=== PATIENT | female | born 1940 | race Caucasian/White ===

== ENCOUNTER 2025-03-09 16:38 | Inpatient (IN) ==
--- NOTE | 2025-03-09 17:18 | DR.HTN ---
HPI Time Seen Time Seen by Provider: 03/09/25 17:13 Complaints Chief Complaint Doctors Comments: 84 yo F, hx of HTN, c/o stroke like symptoms for the past 2-3 wk. States 3 wk ago began having impaired short-term memory and intermitt blurred vision. 2 wk ago began having intermitt episodes of expressive aphasia and slurred speech. Pt admits to mild dyspnea. Denies other complaints. No trouble with speech today. BP 212/79 at home today. PMH PMH Past Medical History: Asthma, Depression, Dyslipidemia, Gout, Hypertension, Hypothyroidism and Kidney Stones Past Surgical History: Yes Surgical History: Abdominal Surgery, , Cholecystectomy, [employer] Surgery and Hysterectomy Family History Family Medical History: VT, Coronary Artery Disease, Heart Failure and Hypertension Social History Do you use any recreational Drugs:: No ROS Review of Systems Neurological: Headache and Other (blurred vision, slurred speech, memory problems, confusion) All Other Systems: Reviewed and Negative PE Vital Signs Vitals: Vital Signs Temperature 98.5 F Pulse Rate 76 Pulse Rate 76 Pulse Rate 77 Pulse Rate 74 Pulse Rate 75 Pulse Rate 76 Pulse Rate 74 Pulse Rate 75 Pulse Rate 80 Pulse Rate 69 Pulse Rate 70 Pulse Rate 71 Pulse Rate 73 Pulse Rate 74 Pulse Rate 74 Pulse Rate 70 Pulse Rate 69 Pulse Rate 72 Pulse Rate 75 Pulse Rate 69 Pulse Rate 67 Pulse Rate 66 Pulse Rate 64 Pulse Rate 64 Respiratory Rate 28 Respiratory Rate 28 Respiratory Rate 23 Respiratory Rate 15 Respiratory Rate 23 Respiratory Rate 15 Respiratory Rate 17 Respiratory Rate 18 Respiratory Rate 19 Respiratory Rate 22 Respiratory Rate 23 Respiratory Rate 19 Respiratory Rate 19 Respiratory Rate 18 Respiratory Rate 17 Respiratory Rate 16 Respiratory Rate 22 Respiratory Rate 17 Respiratory Rate 25 Respiratory Rate 20 Respiratory Rate 18 Blood Pressure 195/91 Blood Pressure 192/81 Blood Pressure 187/78 Blood Pressure 187/79 Blood Pressure 185/79 Blood Pressure 209/86 Blood Pressure 184/77 Blood Pressure 183/77 Blood Pressure 182/76 Blood Pressure 206/81 Blood Pressure 179/78 Blood Pressure 206/79 Blood Pressure 200/85 Blood Pressure 215/95 Blood Pressure 221/88 Blood Pressure 209/87 O2 Sat by Pulse Oximetry 97 O2 Sat by Pulse Oximetry 98 O2 Sat by Pulse Oximetry 97 O2 Sat by Pulse Oximetry 97 O2 Sat by Pulse Oximetry 97 O2 Sat by Pulse Oximetry 98 O2 Sat by Pulse Oximetry 97 O2 Sat by Pulse Oximetry 98 O2 Sat by Pulse Oximetry 94 O2 Sat by Pulse Oximetry 96 O2 Sat by Pulse Oximetry 97 O2 Sat by Pulse Oximetry 97 O2 Sat by Pulse Oximetry 97 O2 Sat by Pulse Oximetry 97 O2 Sat by Pulse Oximetry 96 O2 Sat by Pulse Oximetry 96 O2 Sat by Pulse Oximetry 96 O2 Sat by Pulse Oximetry 97 O2 Sat by Pulse Oximetry 96 O2 Sat by Pulse Oximetry 95 O2 Sat by Pulse Oximetry 95 O2 Sat by Pulse Oximetry 96 O2 Sat by Pulse Oximetry 94 O2 Sat by Pulse Oximetry 95 General Limitations: No Limitations General Appearance: Alert and In No Apparent Distress Head Head Exam: Normal Inspection Eyes Eye exam: Normal Appearance ENT ENT Exam: Normal Exam Neck Neck Exam: Normal Inspection Chest Chest Inspection: Normal Inspection Respiratory Respiratory Exam: Normal Lung Sounds Bilat Respiratory Exam: Bilateral: Clear to Auscultation Cardiovascular Cardiovascular Exam: Regular Rate and Normal Rhythm Abdominal Exam Abdominal Exam: Normal Inspection, Normal Bowel Sounds and Soft Extremities Extremities Exam: Normal Inspection Back Back Exam: Normal Inspection Neurologic Neurological Exam: Alert and Oriented X3 Psychiatric Psychiatric Exam: Normal Affect and Normal Mood Skin Skin Exam: Warm, Dry, Intact and Normal Color ROR Labs Reviewed 03/09/25 17:24 03/09/25 17:24 Laboratory: WBC 6.9 X10^3/uL (3.6-10.0) 03/09/25 17:24 RBC 3.97 X10^6/uL (3.5-5.4) 03/09/25 17:24 Hgb 12.8 g/dL (12.0-16.0) 03/09/25 17:24 Hct 38.5 % (36.0-47.0) 03/09/25 17:24 MCV 97.1 fL (80.0-100.0) 03/09/25 17:24 MCH 32.4 pg (27.0-34.0) 03/09/25 17:24 MCHC 33.3 g/dL (33.0-35.0) 03/09/25 17:24 RDW 15.0 % (11.6-16.5) 03/09/25 17:24 Plt Count 227 X10^3/uL (150.0-450.0) 03/09/25 17:24 MPV 8.3 fL (7.4-11.0) 03/09/25 17:24 Neut % (Auto) 68.4 % (42.0-75.0) 03/09/25 17:24 Lymph % (Auto) 15.6 % (21.0-51.0) L 03/09/25 17:24 [place] % (Auto) 10.6 % (0.0-13.0) 03/09/25 17:24 Eos % (Auto) 4.6 % (0.9-2.9) H 03/09/25 17:24 Baso % (Auto) 0.8 % (0.2-1.0) 03/09/25 17:24 Neut # (Auto) 4.7 x10^3/uL (2.2-4.8) 03/09/25 17:24 Lymph # (Auto) 1.1 X10^3/uL (1.3-2.9) L 03/09/25 17:24 [place] # (Auto) 0.7 x10^3/uL (0.3-0.8) 03/09/25 17:24 Eos # (Auto) 0.3 x10^3/uL (0.0-0.2) H 03/09/25 17:24 Baso # (Auto) 0.1 X10^3/uL (0.0-0.1) 03/09/25 17:24 Absolute Nucleated RBC 0.0 /100WBC 03/09/25 17:24 PT 13.3 SECONDS (11.8-14.3) 03/09/25 17:24 INR Target Range - 03/09/25 17:24 INR 1.00 (0.8-1.3) 03/09/25 17:24 APTT 25.4 SECONDS (22.9-36.5) 03/09/25 17:24 PTT Comment - 03/09/25 17:24 Sodium 144 mmol/L (136-145) 03/09/25 17:24 Corrected Sodium 144 mmol/L (136-145) 03/09/25 17:24 Potassium 4.6 mmol/L (3.5-5.1) 03/09/25 17:24 Chloride 108 mmol/L (98-107) H 03/09/25 17:24 Carbon Dioxide 28.3 mmol/L (21-32) 03/09/25 17:24 BUN 39 mg/dL (7-18) H 03/09/25 17:24 Creatinine 1.10 mg/dL (0.55-1.02) H 03/09/25 17:24 Est GFR (MDRD) Af Amer > 60 (>60) 03/09/25 17:24 Est GFR (MDRD) Non-Af 50 (>60) L 03/09/25 17:24 Glucose 112 mg/dL (65-99) H 03/09/25 17:24 Calcium 9.0 mg/dL (8.5-10.1) 03/09/25 17:24 Corrected Calcium TNP 03/09/25 17:24 Magnesium 2.1 mg/dL (2.0-2.9) 03/09/25 17:24 Total Bilirubin 0.30 mg/dL (0.2-1.0) 03/09/25 17:24 AST 54 Units/L (15-37) H 03/09/25 17:24 ALT 70 Units/L (12-78) 03/09/25 17:24 Alkaline Phosphatase 104 Units/L (46-116) 03/09/25 17:24 Creatine Kinase 101 Units/L (26-192) 03/09/25 17:24 Troponin I High Sens 10.2 ng/L (4.0-60.0) 03/09/25 17:24 B-Natriuretic Peptide 141 pg/mL (0-79) H 03/09/25 17:24 Total Protein 7.4 g/dL (6.4-8.2) 03/09/25 17:24 Albumin 3.9 g/dL (3.4-5.0) 03/09/25 17:24 Globulin 3.5 g/dL (2.5-4.5) 03/09/25 17:24 Albumin/Globulin Ratio 1.1 Ratio (1.1-2.1) 03/09/25 17:24 Specimen Type Clean catch urine 03/09/25 19:03 Urine Color Pale yellow (YELLOW) 03/09/25 19:03 Urine Appearance Clear (CLEAR) 03/09/25 19:03 Urine pH 6.0 (5.0 - 8.0) 03/09/25 19:03 Ur Specific [place] 1.015 (1.000-1.030) 03/09/25 19:03 Urine Protein 2+ (NEGATIVE) 03/09/25 19:03 Urine Glucose (UA) Negative (NEGATIVE) 03/09/25 19:03 Urine Ketones Negative (NEGATIVE) 03/09/25 19:03 Urine Blood Negative (NEGATIVE) 03/09/25 19:03 Urine Nitrite Negative (NEGATIVE) 03/09/25 19:03 Urine Bilirubin Negative (NEGATIVE) 03/09/25 19:03 Urine Urobilinogen Normal (NORMAL) 03/09/25 19:03 Ur Leukocyte Esterase 1+ (NEGATIVE) 03/09/25 19:03 Urine RBC 0-2 /HPF (0-3) 03/09/25 19:03 Urine WBC 3-5 /HPF (0-5) 03/09/25 19:03 Ur Squamous Epith Cells Few /HPF (NEGATIVE) 03/09/25 19:03 Urine Bacteria Trace /HPF (NEGATIVE) 03/09/25 19:03 Ur Culture Indicated? No/not indicated 03/09/25 19:03 Opioid Opioid Risk Tool Age (Manuel box if 16-45): No History of Preadolescent Sexual Abuse: No Total: 0 Total Score Risk Category: Low Risk Copyright: Theodore VENEGAS predicting aberrant behaviors Discharge Plan Diagnosis Discharge Problem: Acute confusion, Weakness, Acute UTI Hypertension Qualifiers: Hypertension type: primary hypertension Qualified Code(s): I10 - Essential (primary) hypertension Discharge Plan Patient Disposition: ADMITTED INPATIENT Condition: Stable Prescriptions: No Action clonidine HCl 0.1 mg tablet 0.1 mg PO Q6H PRN nifedipine 30 mg tablet extended release 30 mg PO QDAY potassium chloride 10 mEq Capsule, Extended Release 10 meq PO BID meloxicam 7.5 mg Tablet 7.5 mg PO DAILY citalopram 20 mg Tablet 10 mg PO DAILY imiquimod 5 % Cream In Packet 1 applic TOPICAL DAILY Rx Instructions: thursday-thursday x 6 weeks calcium carbonate [Tums] 200 mg calcium (500 mg) Tablet,Chewable 500 mg PO BID betamethasone dipropionate 0.05 % Cream 1 applic TOPICAL DAILY Rx Instructions: thursday-thursday x 6 weeks montelukast 10 mg Tablet 10 mg PO DAILY allopurinol 300 mg Tablet 300 mg PO DAILY aspirin 81 mg Tablet 81 mg PO DAILY albuterol sulfate 90 mcg/actuation Hfa Aerosol Inhaler 90 mcg INHALATION Q4H PRN fluticasone propionate 50 mcg/actuation [place],Suspension 2 spray INTRANASAL DAILY olmesartan-hydrochlorothiazide 40-12.5 mg Tablet 1 tab PO DAILY nebivolol 20 mg Tablet 20 mg PO DAILY Centrum Silver Women 8 mg iron-400 mcg-50 mcg Tablet 1 tab PO DAILY Gemtesa 75 mg Tablet 75 mg PO DAILY cefdinir 300 mg capsule 300 mg PO BID Qty: 20 0RF benzonatate 200 mg capsule 200 mg PO BID PRN (Reason: cough) Qty: 20 0RF furosemide [Lasix] 20 mg tablet 20 mg PO QDAY Qty: 7 0RF Health Concerns: Post Hospitalization: new medications and changes needed to prevent readmission or further decline. Pt educated and given instructions on all concerns. Plan of Treatment: Continue with present treatment and follow up plan. Pt is to keep follow up appointment as instructed and take medications as ordered. Orders to Discharge Patient Discharge Orders: Transfer (Routine); Ordered 03/09/25 Ordered By: Nash Guerra Follow ups/Referrals Follow ups/Referrals: ZEESHAN STEVENS [Primary Care Provider, Unknown] - 3 days Instructions Stand Alone Forms: Find Help Web Site, Post Hospital Follow Up Care Print Language: KAZAKH Provider Note Additional Notes pt accepted by Dr Johnson.
[2025-03-09 17:32] LABS: MEAN PLATELET VOLUME 8.3 fL (7.4-11.0); RED CELL DISTRIBUTION WIDTH 15.0 % (11.6-16.5)
[2025-03-09] MEDS: APRESOLINE INJ 20 MG VIAL IVP ONE ×2 (17:33→18:49)
[2025-03-09 17:45] LABS: INR 1.00 (0.8-1.3)
--- NOTE | 2025-03-09 17:46 | EKG ---
Test Reason : HTN, slurred speech Blood Pressure : */* mmHG Vent. Rate : 68 BPM Atrial Rate : 68 BPM P-R Int : 164 ms QRS Dur : 72 ms QT Int : 406 ms P-R-T Axes : 114 -8 39 degrees QTc Int : 431 ms Sinus rhythm with premature atrial complexes Minimal voltage criteria for LVH, may be normal variant ( R in aVL ) Inferior infarct , age undetermined Anterior infarct (cited on or before 19-MAR-2024) Abnormal ECG When compared with ECG of 19-MAR-2024 09:38, premature atrial complexes are now present Inferior infarct is now present Non-specific change in ST segment in Inferior leads Non-specific change in ST segment in Lateral leads Confirmed by Alexandru Hidalgo MD ([id number]) on 03/10/2025 7:01:54 AM Referred By: Confirmed By: Alexandru Hidalgo MD
[2025-03-09 17:48] LABS: COR NA(FOR HYPERGLY) 144 mmol/L (136-145); CREATININE 1.10 mg/dL (0.55-1.02); eGFR NON BLACK RACES 50 (>60)
--- NOTE | 2025-03-09 18:09 | CT ---
EXAM: BRAIN W/O CON HISTORY: Elevated blood pressure, Altered Mental Statues, Slurred Speach, Shortness of Breath since 02/27/25.; COMPARISON: None available. TECHNIQUE: Multiple axial images of the brain were obtained from the skull base to the vertex without administration of IV contrast. Dose reduction techniques including Automated Exposure Control (AEC) and adjustment of mA and kV were utilized. FINDINGS: No acute intraparenchymal hemorrhage or mass can be identified. No extra-axial fluid collections are seen. No alteration in the attenuation of the brain parenchyma can be identified to suggest acute or subacute ischemic change. Mild small-vessel ischemic changes and age-appropriate atrophy are noted. The ventricular system is symmetric and nondilated. The extracranial structures appear unremarkable. IMPRESSION: 1. No acute intracranial process can be identified. THIS IS AN ELECTRONICALLY VERIFIED FINAL REPORT 03/09/2025 5:57 PM - Electronically signed by Raoul Garvey MD
--- NOTE | 2025-03-09 18:09 | RAD ---
EXAM: CHEST, 1 VIEW HISTORY: Elevated blood pressure, Altered Mental Statues, Slurred Speach, Shortness of Breath since 02/27/25.; COMPARISON: March 19, 2024 TECHNIQUE: Chest radiographic imaging, AP portable projection, 1 image FINDINGS: Mild cardiomegaly. No focal airspace disease. No pleural effusion. No pneumothorax. No acute osseous abnormality. IMPRESSION: No imaging findings of acute cardiopulmonary disease. THIS IS AN ELECTRONICALLY VERIFIED FINAL REPORT 03/09/2025 6:04 PM - Electronically signed by Logan Lopes MD
[2025-03-09 19:09] LABS: BLOOD/HEMOGLOBIN,URINE NEGATIVE (NEGATIVE); LEUKOCYTE ESTERASE ,URINE 1+ (NEGATIVE); NITRITES,URINE NEGATIVE (NEGATIVE)
[2025-03-09 19:27] LABS: APPEARANCE,URINE CLEAR (CLEAR); SQUAMOUS EPITHELIAL CELL,UR FEW /HPF (NEGATIVE)
[2025-03-09] MEDS: NORMODYNE INJ 100 MG VIAL IVP ONE (19:52)
[2025-03-09] MEDS: NORMODYNE INJ 20 MG VIAL IVP ONE (20:00)
[2025-03-09] MEDS: ROCEPHIN VIAL 1 GRAM 1 G in NS 100 ML IV 100 ML IV ONE (20:02)
[2025-03-09] MEDS: TYLENOL 325 MG TAB PO ONE (20:04)
[2025-03-09] MEDS ORDERED: MORPHINE SULFATE INJ 2 MG INJ IVP PRN (21:52)
[2025-03-09] MEDS ORDERED: VENTOLIN or PROAIR HFA IN PRN (21:52)
[2025-03-09] MEDS ORDERED: ZOFRAN TAB 4 MG PO PRN (21:52)
[2025-03-09] MEDS ORDERED: CONSULT PHARMACY - POTASSIUM & MAGNESIUM XX SCH (21:52)
[2025-03-09] MEDS ORDERED: ULTRAM PO PRN (21:52)
[2025-03-09] MEDS ORDERED: NORCO 5/325 MG TAB PO PRN (21:52)
[2025-03-09] MEDS ORDERED: TESSALON PERLES PO PRN (23:10)
[2025-03-09 23:38] VITALS: BMI 31.6
[2025-03-10] MEDS: TUMS PO SCH (00:12)
[2025-03-10] MEDS: NS 1,000 ML IV 1,000 ML IV SCH (00:15)
[2025-03-10] MEDS: APRESOLINE TAB 25 MG PO SCH ×2 (01:09→08:56)
[2025-03-10 05:31] LABS: MEAN PLATELET VOLUME 8.4 fL (7.4-11.0); RED CELL DISTRIBUTION WIDTH 14.8 % (11.6-16.5)
[2025-03-10] MEDS: TYLENOL 325 MG TAB PO PRN (05:46)
[2025-03-10 05:48] LABS: COR NA(FOR HYPERGLY) 144 mmol/L (136-145); CREATININE 1.14 mg/dL (0.55-1.02); eGFR NON BLACK RACES 48 (>60)
[2025-03-10] MEDS: HYDROCHLOROTHIAZIDE 12.5 MG CAP PO SCH (07:45)
[2025-03-10] MEDS: BENICAR PO SCH (07:46)
[2025-03-10] MEDS: BYSTOLIC PO SCH (07:46)
[2025-03-10] MEDS: BENICAR ONE (07:52)
[2025-03-10] MEDS: HYDROCHLOROTHIAZIDE 12.5 MG CAP ONE (07:52)
[2025-03-10] MEDS: BYSTOLIC ONE (07:52)
[2025-03-10] MEDS: KLOR-CON 10 MEQ TAB PO SCH (08:55)
[2025-03-10] MEDS: CELEXA PO SCH (08:55)
[2025-03-10] MEDS: MOBIC TAB 15 MG PO SCH (08:56)
[2025-03-10] MEDS: SINGULAIR TAB 10 MG PO SCH (08:56)
[2025-03-10] MEDS: ZYLOPRIM PO SCH (08:56)
[2025-03-10] MEDS: ASPIRIN EC 81 MG PO SCH (08:57)
[2025-03-10] MEDS ORDERED: PATIENT'S HOME MEDICATION (Aspirin 81 mg Tablet) PO SCH (09:00)
[2025-03-10] MEDS ORDERED: VIBEGRON 75 MG PO SCH (09:00)
[2025-03-10] MEDS ORDERED: PATIENT'S HOME MEDICATION (Meloxicam 7.5 mg Tablet) PO SCH (09:00)
[2025-03-10] MEDS: LASIX PO SCH (09:06)
[2025-03-10] MEDS: FLONASE NASAL SPRAY ENOSTRIL SCH (09:20)
[2025-03-10] MEDS: KENALOG CREAM TOP SCH (09:21)
[2025-03-10] MEDS: CIPRO IV 400 MG PREMIX* 400 MG/200 ML IV.SOLN. IV SCH (10:18)
[2025-03-10] MEDS: ZOFRAN INJ 4 MG VIAL IVP PRN (11:31)
[2025-03-11 06:16] LABS: MEAN PLATELET VOLUME 8.6 fL (7.4-11.0); RED CELL DISTRIBUTION WIDTH 14.8 % (11.6-16.5)
[2025-03-11 06:41] LABS: COR NA(FOR HYPERGLY) 142 mmol/L (136-145); CREATININE 1.14 mg/dL (0.55-1.02); eGFR NON BLACK RACES 48 (>60)
--- NOTE | 2025-03-11 10:39 | PCM.PROG ---
Progress Note Progress Note for Day of Date of Exam: 03/11/25 Subjective Subjective: Patient is a 84-year-old female admitted for acute cystitis and hypertension. This morning she is sitting in recliner resting comfortably. No acute events overnight. She does report her symptoms are significantly improved. Reviewing blood pressure shows significant improvement with medication regimen. Labs/imaging: WBC 7.2, hemoglobin 11.7, platelets 224, sodium 142, potassium 3.9, creatinine 1.14, glucose 116, blood/urine cultures pending. Patient is currently on IV antibiotics ciprofloxacin. Her echo did reveal an ejection fraction of 65 to 70%. Otherwise we will continue with current treatment plan while awaiting culture results. Continue closely monitor and follow-up labs/imaging Past Medical Family Social History Past Med/Fam/Surg Hx: No changes since H&P Allergies: Allergies azithromycin (From Zithromax) Allergy (Verified 03/09/25 17:19) codeine Allergy (Verified 03/09/25 17:19) ibuprofen (From Motrin) Adverse Reaction (Verified 03/09/25 17:19) Review of Systems ROS changes noted: see HPI Vital Signs and I&O's Vital Signs: Vital Signs Temperature 97.9 F Temperature 98.2 F Pulse Rate [Left] 64 Pulse Rate [Right Radial] 72 Respiratory Rate 19 Respiratory Rate 20 Blood Pressure [Left Arm] 136/61 Blood Pressure [Left Arm] 145/65 O2 Sat by Pulse Oximetry 91 O2 Sat by Pulse Oximetry 95 Intake and Output: Intake & Output 03/08/25 03/09/25 03/10/25 03/11/25 23:59 23:59 23:59 23:59 Intake Total 50 / 50 2913 / 2913 500 / 500 Output Total 0 / 0 Balance 50 / 50 2913 / 2913 500 / 500 Physical Exam Oriented: Normal Eyes: Normal Ear: Normal Nose: Normal Respiratory: Normal Cardiovascular: Normal Auscultation: Bowel Sounds: Normal Palpation: Normal Tenderness: Normal Skin: Normal Musculoskeletal: Normal Psychiatric: Normal Speech Pattern: Clear and Appropriate Laboratory and Diagnostics 03/11/25 05:15 03/11/25 05:15 Labs: Laboratory WBC 7.2 X10^3/uL (3.6-10.0) 03/11/25 05:15 RBC 3.60 X10^6/uL (3.5-5.4) 03/11/25 05:15 Hgb 11.7 g/dL (12.0-16.0) L 03/11/25 05:15 Hct 35.0 % (36.0-47.0) L 03/11/25 05:15 MCV 97.1 fL (80.0-100.0) 03/11/25 05:15 MCH 32.6 pg (27.0-34.0) 03/11/25 05:15 MCHC 33.6 g/dL (33.0-35.0) 03/11/25 05:15 RDW 14.8 % (11.6-16.5) 03/11/25 05:15 Plt Count 224 X10^3/uL (150.0-450.0) 03/11/25 05:15 MPV 8.6 fL (7.4-11.0) 03/11/25 05:15 Neut % (Auto) 65.5 % (42.0-75.0) 03/11/25 05:15 Lymph % (Auto) 16.6 % (21.0-51.0) L 03/11/25 05:15 [place] % (Auto) 11.1 % (0.0-13.0) 03/11/25 05:15 Eos % (Auto) 5.4 % (0.9-2.9) H 03/11/25 05:15 Baso % (Auto) 1.4 % (0.2-1.0) H 03/11/25 05:15 Neut # (Auto) 4.7 x10^3/uL (2.2-4.8) 03/11/25 05:15 Lymph # (Auto) 1.2 X10^3/uL (1.3-2.9) L 03/11/25 05:15 [place] # (Auto) 0.8 x10^3/uL (0.3-0.8) 03/11/25 05:15 Eos # (Auto) 0.4 x10^3/uL (0.0-0.2) H 03/11/25 05:15 Baso # (Auto) 0.1 X10^3/uL (0.0-0.1) 03/11/25 05:15 Absolute Nucleated RBC 0.1 /100WBC 03/11/25 05:15 PT 13.3 SECONDS (11.8-14.3) 03/09/25 17:24 INR Target Range - 03/09/25 17:24 INR 1.00 (0.8-1.3) 03/09/25 17:24 APTT 25.4 SECONDS (22.9-36.5) 03/09/25 17:24 PTT Comment - 03/09/25 17:24 D-Dimer 0.33 ug/ml (0.0-0.57) 03/09/25 17:24 Sodium 142 mmol/L (136-145) 03/11/25 05:15 Corrected Sodium 142 mmol/L (136-145) 03/11/25 05:15 Potassium 3.9 mmol/L (3.5-5.1) 03/11/25 05:15 Chloride 108 mmol/L (98-107) H 03/11/25 05:15 Carbon Dioxide 26.5 mmol/L (21-32) 03/11/25 05:15 BUN 28 mg/dL (7-18) H 03/11/25 05:15 Creatinine 1.14 mg/dL (0.55-1.02) H 03/11/25 05:15 Est GFR (MDRD) Af Amer 58 (>60) L 03/11/25 05:15 Est GFR (MDRD) Non-Af 48 (>60) L 03/11/25 05:15 Glucose 116 mg/dL (65-99) H 03/11/25 05:15 Calcium 8.6 mg/dL (8.5-10.1) 03/11/25 05:15 Corrected Calcium TNP 03/11/25 05:15 Magnesium 2.1 mg/dL (2.0-2.9) 03/09/25 17:24 Total Bilirubin 0.40 mg/dL (0.2-1.0) 03/11/25 05:15 AST 30 Units/L (15-37) 03/11/25 05:15 ALT 45 Units/L (12-78) 03/11/25 05:15 Alkaline Phosphatase 87 Units/L (46-116) 03/11/25 05:15 Creatine Kinase 101 Units/L (26-192) 03/09/25 17:24 Troponin I High Sens 10.2 ng/L (4.0-60.0) 03/09/25 17:24 B-Natriuretic Peptide 141 pg/mL (0-79) H 03/09/25 17:24 Total Protein 6.4 g/dL (6.4-8.2) 03/11/25 05:15 Albumin 3.4 g/dL (3.4-5.0) 03/11/25 05:15 Globulin 3.0 g/dL (2.5-4.5) 03/11/25 05:15 Albumin/Globulin Ratio 1.1 Ratio (1.1-2.1) 03/11/25 05:15 Specimen Type Clean catch urine 03/09/25 19:03 Urine Color Pale yellow (YELLOW) 03/09/25 19:03 Urine Appearance Clear (CLEAR) 03/09/25 19:03 Urine pH 6.0 (5.0 - 8.0) 03/09/25 19:03 Ur Specific [place] 1.015 (1.000-1.030) 03/09/25 19:03 Urine Protein 2+ (NEGATIVE) 03/09/25 19:03 Urine Glucose (UA) Negative (NEGATIVE) 03/09/25 19:03 Urine Ketones Negative (NEGATIVE) 03/09/25 19:03 Urine Blood Negative (NEGATIVE) 03/09/25 19:03 Urine Nitrite Negative (NEGATIVE) 03/09/25 19:03 Urine Bilirubin Negative (NEGATIVE) 03/09/25 19:03 Urine Urobilinogen Normal (NORMAL) 03/09/25 19:03 Ur Leukocyte Esterase 1+ (NEGATIVE) 03/09/25 19:03 Urine RBC 0-2 /HPF (0-3) 03/09/25 19:03 Urine WBC 3-5 /HPF (0-5) 03/09/25 19:03 Ur Squamous Epith Cells Few /HPF (NEGATIVE) 03/09/25 19:03 Urine Bacteria Trace /HPF (NEGATIVE) 03/09/25 19:03 Ur Culture Indicated? No/not indicated 03/09/25 19:03 Plan (1) Acute UTI: Status: Acute Plan: Continue antibiotics. Follow-up cultures. (2) Weakness: Status: Acute (3) Hypertension: Status: Acute Qualifiers: Hypertension type: primary hypertension Qualified Code(s): I10 - Essential (primary) hypertension Plan: Monitor blood pressure. Continue medications.
[2025-03-11] MEDS: CARAFATE PO SCH (11:39)
[2025-03-12 06:25] LABS: MEAN PLATELET VOLUME 8.7 fL (7.4-11.0); RED CELL DISTRIBUTION WIDTH 15.2 % (11.6-16.5)
[2025-03-12 06:34] LABS: COR CA(FOR HYPOALB) 8.9 mg/dL (8.5-10.1); COR NA(FOR HYPERGLY) 142.0 mmol/L (136-145); CREATININE 1.44 mg/dL (0.55-1.02); eGFR NON BLACK RACES 37.0 (>60)
[2025-03-12] MEDS: APRESOLINE TAB 25 MG PO SCH (10:18)
--- NOTE | 2025-03-12 10:49 | PCM.PROG ---
Progress Note Progress Note for Day of Date of Exam: 03/12/25 Subjective Subjective: Patient is a 84-year-old female admitted for acute cystitis and hypertension. This morning she is sitting in recliner. No acute events overnight. She reports feeling better and does not have nausea anymore. This morning she is bradycardic. She is asymptomatic. Will hold Bystolic today. Continue to monitor. Labs/imaging: WBC 6.9, hemoglobin 11.1, platelets 191, sodium 142, potassium 4.2, creatinine 1.44, glucose 114, blood culture NGTD, Urine culture shows contamination. Patient is currently on IV antibiotics ciprofloxacin. Her echo did reveal an ejection fraction of 65 to 70%. Otherwise we will continue with current treatment plan. Continue closely monitor and follow-up labs/imaging. Past Medical Family Social History Past Med/Fam/Surg Hx: No changes since H&P Allergies: Allergies azithromycin (From Zithromax) Allergy (Verified 03/09/25 17:19) codeine Allergy (Verified 03/09/25 17:19) ibuprofen (From Motrin) Adverse Reaction (Verified 03/09/25 17:19) Review of Systems ROS changes noted: see HPI Vital Signs and I&O's Vital Signs: Vital Signs Temperature 97.3 F Temperature 98.2 F Pulse Rate [Left] 48 Pulse Rate [Left] 51 Respiratory Rate 20 Respiratory Rate 19 Blood Pressure [Left Arm] 156/59 Blood Pressure [Left Arm] 145/65 O2 Sat by Pulse Oximetry 94 O2 Sat by Pulse Oximetry 95 Intake and Output: Intake & Output 03/09/25 03/10/25 03/11/25 03/12/25 23:59 23:59 23:59 23:59 Intake Total 50 / 50 2913 / 2913 2505 / 2505 768 / 768 Output Total 0 / 0 Balance 50 / 50 2913 / 2913 2505 / 2505 768 / 768 Physical Exam Oriented: Normal Eyes: Normal Ear: Normal Nose: Normal Respiratory: Normal Cardiovascular: Normal Auscultation: Bowel Sounds: Normal Tenderness: Normal Skin: Normal Musculoskeletal: Normal Psychiatric: Normal Speech Pattern: Clear and Appropriate Laboratory and Diagnostics 03/12/25 05:21 03/12/25 05:21 Labs: 03/09/25 20:30 Blood Blood Culture - Preliminary 03/09/25 20:19 Blood Blood Culture - Preliminary 03/09/25 19:03 Urine,Clean Catch Urine Culture - Final Laboratory WBC 6.9 X10^3/uL (3.6-10.0) 03/12/25 05:21 RBC 3.40 X10^6/uL (3.5-5.4) L 03/12/25 05:21 Hgb 11.1 g/dL (12.0-16.0) L 03/12/25 05:21 Hct 33.2 % (36.0-47.0) L 03/12/25 05:21 MCV 97.8 fL (80.0-100.0) 03/12/25 05:21 MCH 32.7 pg (27.0-34.0) 03/12/25 05:21 MCHC 33.4 g/dL (33.0-35.0) 03/12/25 05:21 RDW 15.2 % (11.6-16.5) 03/12/25 05:21 Plt Count 191 X10^3/uL (150.0-450.0) 03/12/25 05:21 MPV 8.7 fL (7.4-11.0) 03/12/25 05:21 Neut % (Auto) 64.2 % (42.0-75.0) 03/12/25 05:21 Lymph % (Auto) 19.3 % (21.0-51.0) L 03/12/25 05:21 [place] % (Auto) 10.5 % (0.0-13.0) 03/12/25 05:21 Eos % (Auto) 4.4 % (0.9-2.9) H 03/12/25 05:21 Baso % (Auto) 1.6 % (0.2-1.0) H 03/12/25 05:21 Neut # (Auto) 4.4 x10^3/uL (2.2-4.8) 03/12/25 05:21 Lymph # (Auto) 1.3 X10^3/uL (1.3-2.9) 03/12/25 05:21 [place] # (Auto) 0.7 x10^3/uL (0.3-0.8) 03/12/25 05:21 Eos # (Auto) 0.3 x10^3/uL (0.0-0.2) H 03/12/25 05:21 Baso # (Auto) 0.1 X10^3/uL (0.0-0.1) 03/12/25 05:21 Absolute Nucleated RBC 0.1 /100WBC 03/12/25 05:21 PT 13.3 SECONDS (11.8-14.3) 03/09/25 17:24 INR Target Range - 03/09/25 17:24 INR 1.00 (0.8-1.3) 03/09/25 17:24 APTT 25.4 SECONDS (22.9-36.5) 03/09/25 17:24 PTT Comment - 03/09/25 17:24 D-Dimer 0.33 ug/ml (0.0-0.57) 03/09/25 17:24 Sodium 142 mmol/L (136-145) 03/12/25 05:21 Corrected Sodium 142 mmol/L (136-145) 03/12/25 05:21 Potassium 4.2 mmol/L (3.5-5.1) 03/12/25 05:21 Chloride 110 mmol/L (98-107) H 03/12/25 05:21 Carbon Dioxide 25.8 mmol/L (21-32) 03/12/25 05:21 BUN 36 mg/dL (7-18) H 03/12/25 05:21 Creatinine 1.44 mg/dL (0.55-1.02) H 03/12/25 05:21 Est GFR (MDRD) Af Amer 45 (>60) L 03/12/25 05:21 Est GFR (MDRD) Non-Af 37 (>60) L 03/12/25 05:21 Glucose 114 mg/dL (65-99) H 03/12/25 05:21 Calcium 8.3 mg/dL (8.5-10.1) L 03/12/25 05:21 Corrected Calcium 8.9 mg/dL (8.5-10.1) 03/12/25 05:21 Magnesium 2.1 mg/dL (2.0-2.9) 03/09/25 17:24 Total Bilirubin 0.40 mg/dL (0.2-1.0) 03/12/25 05:21 AST 34 Units/L (15-37) 03/12/25 05:21 ALT 44 Units/L (12-78) 03/12/25 05:21 Alkaline Phosphatase 82 Units/L (46-116) 03/12/25 05:21 Creatine Kinase 101 Units/L (26-192) 03/09/25 17:24 Troponin I High Sens 10.2 ng/L (4.0-60.0) 03/09/25 17:24 B-Natriuretic Peptide 141 pg/mL (0-79) H 03/09/25 17:24 Total Protein 6.1 g/dL (6.4-8.2) L 03/12/25 05:21 Albumin 3.2 g/dL (3.4-5.0) L 03/12/25 05:21 Globulin 2.9 g/dL (2.5-4.5) 03/12/25 05:21 Albumin/Globulin Ratio 1.1 Ratio (1.1-2.1) 03/12/25 05:21 Specimen Type Clean catch urine 03/09/25 19:03 Urine Color Pale yellow (YELLOW) 03/09/25 19:03 Urine Appearance Clear (CLEAR) 03/09/25 19:03 Urine pH 6.0 (5.0 - 8.0) 03/09/25 19:03 Ur Specific [place] 1.015 (1.000-1.030) 03/09/25 19:03 Urine Protein 2+ (NEGATIVE) 03/09/25 19:03 Urine Glucose (UA) Negative (NEGATIVE) 03/09/25 19:03 Urine Ketones Negative (NEGATIVE) 03/09/25 19:03 Urine Blood Negative (NEGATIVE) 03/09/25 19:03 Urine Nitrite Negative (NEGATIVE) 03/09/25 19:03 Urine Bilirubin Negative (NEGATIVE) 03/09/25 19:03 Urine Urobilinogen Normal (NORMAL) 03/09/25 19:03 Ur Leukocyte Esterase 1+ (NEGATIVE) 03/09/25 19:03 Urine RBC 0-2 /HPF (0-3) 03/09/25 19:03 Urine WBC 3-5 /HPF (0-5) 03/09/25 19:03 Ur Squamous Epith Cells Few /HPF (NEGATIVE) 03/09/25 19:03 Urine Bacteria Trace /HPF (NEGATIVE) 03/09/25 19:03 Ur Culture Indicated? No/not indicated 03/09/25 19:03 Plan (1) Acute UTI: Status: Acute Plan: Continue antibiotics. Follow-up cultures. (2) Weakness: Status: Acute (3) Hypertension: Status: Acute Qualifiers: Hypertension type: primary hypertension Qualified Code(s): I10 - Essential (primary) hypertension Plan: Monitor blood pressure. Continue medications.
[2025-03-13] MEDS: APRESOLINE INJ 20 MG VIAL IVP PRN (00:30)
[2025-03-13] MEDS: CATAPRES TAB 0.1 MG PO ONE (02:10)
[2025-03-13 05:46] LABS: MEAN PLATELET VOLUME 8.6 fL (7.4-11.0); RED CELL DISTRIBUTION WIDTH 15.0 % (11.6-16.5)
[2025-03-13 06:03] LABS: COR CA(FOR HYPOALB) 9.1 mg/dL (8.5-10.1); COR NA(FOR HYPERGLY) 142.0 mmol/L (136-145); CREATININE 1.31 mg/dL (0.55-1.02); eGFR NON BLACK RACES 41.0 (>60)
[2025-03-13] MEDS: MICARDIS PO SCH (09:59)
[2025-03-13] MEDS ORDERED: OMNIPAQUE 350 mg/mL 50 mL BTL 50 ML ONE (10:40)
[2025-03-13] MEDS ORDERED: OMNIPAQUE 350 mg/mL 100 mL BTL 100 ML ONE (10:40)
--- NOTE | 2025-03-13 14:02 | CT ---
EXAM: CTA AORTA WITH RUNOFF HISTORY: malignant htn; COMPARISON: None. TECHNIQUE: Axial CT images of the abdomen, pelvis and lower extremities were obtained with administration of IV contrast during the arterial phase. Images were reformatted with a 3D angiographic technique for further evaluation. FINDINGS: Mild cardiomegaly Aorta: Atherosclerotic changes with no aneurysm. No clinically significant stenosis or occlusion. Mesenteric arteries/Celiac trunk: No clinically significant stenosis, occlusion or aneurysm. Renal arteries: No clinically significant stenosis, occlusion or aneurysm. Right iliac arteries: No clinically significant stenosis, occlusion or aneurysm. Left iliac arteries: No clinically significant stenosis, occlusion or aneurysm. Right femoral arteries/popliteal artery: No clinically significant stenosis, occlusion or aneurysm. Left femoral arteries/popliteal artery: No clinically significant stenosis, occlusion or aneurysm. Right infrapopliteal arteries: No occlusion or aneurysm. 3 vessel runoff. Left infrapopliteal arteries: No occlusion or aneurysm. 3 vessel runoff. Celiac artery, SMA and JONATHON are patent. Bilateral renal arteries are patent and appear normal with minimal right proximal renal artery plaque formation. 2 right renal arteries Lung bases are clear. No acute osseous abnormality. Stomach and proximal small bowel appear normal. Solid visceral organs of the upper abdomen are unremarkable. Gallbladder appears normal. No biliary dilatation. No renal mass. Mild left hydronephrosis. Left parapelvic renal cysts. 1 cm nonspecific dilatation left renal pelvis with no obstructing stone No urinary calculus identified. Urinary bladder is unremarkable. Unremarkable appearance of the small and large bowel. No evidence of acute appendicitis. Reproductive structures are unremarkable. No pneumoperitoneum. No free intra-abdominal fluid. No adenopathy. Benign 2 mm low-attenuation circumscribed lesion right lower quadrant abdomen image 79 appears benign Hounsfield units 14 Left anterior thigh varicosities are present IMPRESSION: No acute intra-abdominal abnormality identified. Mild left hydronephrosis. No obstructive stone. Evaluate for left UPJ stricture-correlate with urology consult. No renal artery stenosis or nodularity noted. Three-vessel runoff seen to both ankles. Bilateral lower legs demonstrate no vascular occlusion or high-grade stenosis Left anterior thigh venous varicosities are present THIS IS AN ELECTRONICALLY VERIFIED FINAL REPORT 03/13/2025 1:59 PM - Electronically signed by Xin Turcios MD
[2025-03-13] MEDS: APRESOLINE TAB 25 MG PO SCH (14:49)
[2025-03-13] MEDS: CIPRO TAB 500 MG PO SCH (20:36)
[2025-03-14 05:55] LABS: MEAN PLATELET VOLUME 8.6 fL (7.4-11.0); RED CELL DISTRIBUTION WIDTH 14.9 % (11.6-16.5)
[2025-03-14 06:12] LABS: COR CA(FOR HYPOALB) 9.3 mg/dL (8.5-10.1); COR NA(FOR HYPERGLY) 143.0 mmol/L (136-145); CREATININE 1.19 mg/dL (0.55-1.02); eGFR NON BLACK RACES 46.0 (>60)
[2025-03-14 12:03] VITALS: BP 163/68; PULSE 84; RESP 20; TEMP 97.7; O2SAT 97
--- NOTE | 2025-03-14 12:30 | VAS ---
EXAM: CAROTID US HISTORY: HTN, CONFUSION, WEAKNESS; . COMPARISON: None. TECHNIQUE: Ultrasound of the carotid arteries was performed. Color and spectral doppler imaging was utilized. Subjective analysis from rodriges-scale and color flow imaging was used to estimate degree of stenosis. Velocity measurements with ICA / CCA ratios were also utilized. FINDINGS: RIGHT: There is mild eccentric atherosclerotic plaque at the carotid bifurcation. Velocity measurements are obtained and show peak systolic velocity in the ICA is 120 cm/sec. ICA/CCA ratio is calculated at 1.2. Velocity parameters and subjective analysis correlate with estimated degree of stenosis of LEFT: There is mild eccentric atherosclerotic plaque at the carotid bifurcation. Velocity measurements are obtained and show peak systolic velocity in the ICA is 157 cm/sec. ICA/CCA ratio is calculated at 1.4. Velocity parameters and subjective analysis correlate with estimated degree of stenosis of . VERTEBRAL ARTERIES: Antegrade flow is seen bilaterally. IMPRESSION: 1. Elevated left internal carotid artery velocity, suggestive of 50-69% stenosis. 2. No hemodynamically significant right internal carotid artery stenosis. 3. Antegrade vertebral artery flow. THIS IS AN ELECTRONICALLY VERIFIED FINAL REPORT 03/14/2025 12:24 PM - Electronically signed by Trev Church MD
== END 2025-03-14 13:00 | disposition home health service (06) | DRG 690 ==
LOC: MED/SURG 16:38 → ER 16:38 → MED/SURG 21:31
PROVIDERS: ADMIT Obstetrics & Gynecology Obstetrics; ATTEND Obstetrics & Gynecology Obstetrics
DX: F32.89 Other specified depressive episodes; R26.89 Other abnormalities of gait and mobility; E78.5 Hyperlipidemia, unspecified; R41.0 Disorientation, unspecified; R94.31 Abnormal electrocardiogram [ECG] [EKG]; I16.0 Hypertensive urgency; I10 Essential (primary) hypertension; R00.1 Bradycardia, unspecified; R47.81 Slurred speech; N39.0 Urinary tract infection, site not specified; R51.9 Headache, unspecified; E03.8 Other specified hypothyroidism; R53.1 Weakness